=== PATIENT | male | born 1935 | race Two or more races ===

== ENCOUNTER 2018-03-07 12:46 | Outpatient (CLI) | payer OTHER ==
[~2018-03-07 12:46] MED LIST: LYRICA50 MG PO
== END 2018-03-07 12:55 | disposition home or self-care (01) ==
LOC: NUCLEAR 12:46
DX: M48.062 Spinal stenosis, lumbar region with neurogenic claudication (principal); M54.16 Radiculopathy, lumbar region; M85.89 Other specified disorders of bone density and structure, multiple sites

== ENCOUNTER 2023-04-07 15:47 | Emergency (ER) | payer OTHER ==
[~2023-04-07] VITALS: Ht 170.2 cm; Wt 72.6 kg
[~2023-04-07 15:47] MED LIST changes: +BACLOFEN20 MG PO
[2023-04-07] MEDS ORDERED: DULOXETINE HCL40 MG ×3 (16:27→16:32)
[2023-04-07] MEDS ORDERED: TOPROL XL50 M1 ×2 (16:27→16:30)
[2023-04-07] MEDS ORDERED: ADCIRCA20 MG ×2 (16:28→16:31)
[2023-04-07] MEDS ORDERED: PROSCAR5 MG PO ×2 (16:28→16:31)
[2023-04-07] MEDS ORDERED: TAMS0.4C PO ×2 (16:28→16:33)
[2023-04-07 17:57] LABS: HEMOGLOBIN 13.9 g/dL (13-16.00); MEAN CELL VOLUME 86.7 fL (80.0-100.00); MEAN CORPUSCULAR HEMOGLOBIN 29.5 pg (27.00-32.0); RED BLOOD COUNT 4.73 M/uL (4.00-6.00); RED CELL DISTRIBUTION WIDTH 14.8 % (11.5-14.5)
[2023-04-07 18:05] LABS: PLATELET COUNT 89 K/uL (150-450)
[2023-04-07 18:10] LABS: ALBUMIN 3.3 gm/dL (3.4-5.0); BILIRUBIN TOTAL 0.61 mg/dL (0.3-1.2); CALCIUM 8.7 mg/dL (8.5-10.1); CREATININE SERUM 1.09 mg/dL (0.70-1.30); GFR 64.14; GLOBULINA 3.5 G/DL (2.4-3.5); POTASSIUM 4.49 mEq/L (3.5-5.1); TOTAL PROTEIN 6.8 gm/dL (6.4-8.2)
[2023-04-07 18:18] LABS: URINE APPEARANCE Clear; URINE BILIRRUBIN Negative (NEGATIVE); URINE BLOOD Negative; URINE COLOR Yellow; URINE GLUCOSE Negative (NEGATIVE); URINE LEUKOCYTE Negative; URINE NITRATE Negative; URINE PROTEIN 30 (NEGATIVE)
[2023-04-07 18:19] LABS: URINE EPITHELIAL CELLS 2.9 uL (0.0-38.8); URINE RBC 4.1 uL (0.0-20.8); URINE WBC 2.6 uL (0.0-23.2)
[2023-04-07 18:22] LABS: URINE BACTERIA 2.5 uL (0.0-1933)
== END 2023-04-07 18:45 | disposition home or self-care (01) ==
LOC: ER 15:47
PROVIDERS: General Practice
DX: D69.6 Thrombocytopenia, unspecified (principal)
CPT/HCPCS: 36415; 96365; 96366; 99284; J3490; J7030